=== PATIENT | female | born 1995 | race African-American/Black ===

== ENCOUNTER 2022-09-15 13:12 | Emergency (ER) | payer OTHER, SELFPAY ==
--- NOTE | 2022-09-15 13:34 | PC.NURSE ---
went to waiting room to call pt back for triage, pt and 2 children were waiting and stated she was in the bathroom. waited 5 min and then knocked on door. informed pt that i was the nurse and ready to triage her, she stated okay, will be out soon. notified charge nurse
[2022-09-15 13:40] VITALS: BP 142/88; PULSE 103; RESP 14; TEMP 37.1; O2SAT 97; BMI 38.3
[2022-09-15 14:15] LABS: Add Manual Diff / Slide Review NO; Basophils Absolute Auto 100 /uL (0-100); Basophils Percent Auto 0.5 % (0-2); Eosinophils Absolute Auto 100 /uL (0-450); Eosinophils Percent Auto 0.6 % (2-4); Hematocrit 36.1 % (36-46); Hemoglobin 11.9 g/dL (12.0-16.0); Lymphocytes Absolute Auto 2400 /uL (1100-4500); Lymphocytes Percent Auto 24.3 % (25-40); Mean Corpuscular HGB Conc 32.8 % (30-36); Mean Corpuscular Hemoglobin 24.4 PG (26-34); Mean Corpuscular Volume 74.4 fL (80-100); Monocytes Absolute Auto 400 /uL (0-900); Neutrophils Absolute Auto 6900 /uL (1500-7000); Neutrophils Percent Auto 70.6 % (50-75); Platelet Count 328 X10^3/uL (150-400); Red Blood Cell Count 4.86 X10^6/uL (4.0-5.2); Red Cell Distribution Width 14.8 % (11.6-14.8); White Blood Cell Count 9.8 X10^3/uL (4.5-11.0)
[2022-09-15 14:52] VITALS: BP 139/99; PULSE 100; RESP 18; O2SAT 99
[2022-09-15 14:54] LABS: Alanine Aminotransferase 22 IU/L (<35); Albumin 4.2 g/dL (3.5-5.0); Albumin Globulin Ratio 1.1 (1.0-2.8); Alkaline Phosphatase 71 U/L (38-126); Aspartate Aminotransferase 25 IU/L (14-36); BUN Creatinine Ratio 14.3 (6-22); Bilirubin Total 0.4 mg/dL (0.2-1.3); Blood Urea Nitrogen 9 mg/dL (7-17); Calcium 8.9 mg/dL (8.4-10.2); Carbon Dioxide 28 mmol/L (22-32); Chloride 102 mmol/L (98-107); Estimated Glomerular Filt Rate > 60 mL/min (>60); Globulin 3.8 g/dL (1.7-4.1); Glucose 112 mg/dL (70-100); HEMOLYSIS < 15 (0-50); Potassium 3.6 mmol/L (3.4-5.1); Sodium 138 mmol/L (137-145)
--- NOTE | 2022-09-15 15:04 | PC.NURSE ---
pt belongings taken home by at request of pt. clothes, phone and purse.
[2022-09-15 15:07] LABS: Ur Creatinine Normal (Normal); Ur Specific Gravity Normal (Normal); Urine pH Normal (Normal)
[2022-09-15 15:08] LABS: UR Morphine/Opiate cutoff 300 Negative (Negative); Urine Amphetamines Negative (Negative); Urine Barbiturates Negative (Negative); Urine Benzodiazepines Negative (Negative); Urine Cocaine Negative (Negative); Urine MDMA Negative (Negative); Urine Methadone Negative (Negative); Urine Methamphetamines Negative (Negative); Urine Oxycodone Negative (Negative); Urine Phencyclidine Negative (Negative); Urine Tetrahydrocannabinol Negative (Negative); Urine Tricyclic Antidepressant Negative (Negative)
[2022-09-15 15:18] LABS: Acetaminophen < 10 ug/mL (10-30); Ethanol (ETOH) < 10 mg/dL; Salicylate < 1.0 mg/dL (<20)
[2022-09-15 15:36] LABS: Free T4, Direct Thyroxine 0.94 ng/dL (0.78-2.19)
[2022-09-15 15:43] LABS: Bacteria Urine Occasional (0-1); RBC Urine 0-1/HPF (0-5/HPF); Squamous Epithelial Cell Urine 1-5 /HPF (0-5/HPF); WBC Urine 0-1/HPF (0-5/HPF)
[2022-09-15 15:44] LABS: Culture Indicated Urine Cult Not Indicated
[2022-09-15 15:50] LABS: Thyroid Stimulating Hormone 0.761 uIU/mL (0.47-4.68)
--- NOTE | 2022-09-15 17:12 | ED_ITS ---
HPI - Psych <Meaghan Bell DO - Last Filed: 09/16/22 13:16> General Chief Complaint: Psychiatric Symptoms Stated Complaint: SI Time Seen by Provider: 09/15/22 14:46 Source: patient Mode of arrival: Ambulatory History of Present Illness HPI Narrative: Patient is a 27-year-old female history of depression presenting today with suicidal ideations. She says she is been depressed for some time. She is thoughts of harming herself she cut herself with pen on her wrists. She did not want to come her brought her here. She does not want help or mental health help. She is already scratched her wrist with a wrist band. She has 3-year-old and 4-year-old at home. She reports that her is and is supportive. She apparently was previously on Zoloft. She does not trust herself or feel safe going home. Related Data Allergies Allergy/AdvReac Type Severity Reaction Status Date / Time No Known Drug Allergies Allergy Verified 09/15/22 13:40 Review of Systems <Meaghan Bell DO - Last Filed: 09/16/22 13:16> Review of Systems ROS Unobtainable: All systems reviewed & are unremarkable except as noted in HPI and below Patient History <Meaghan Bell DO - Last Filed: 09/16/22 13:16> Social History Smoking Status: Unknown if ever smoked Smoking Status: Unknown if ever smoked alcohol intake frequency: holidays/special occasions only Substance Use Type: does not use Exam <DO Vanessa Gaspar Last Filed: 09/16/22 13:16> Initial Vital Signs Initial Vital Signs: Vital Signs Temperature 98.7 F 09/15/22 13:40 Pulse Rate 103 H 09/15/22 13:40 Respiratory Rate 14 09/15/22 13:40 Blood Pressure 142/88 H 09/15/22 13:40 Pulse Oximetry 97 09/15/22 13:40 Oxygen Delivery Method Room Air 09/15/22 13:40 GENERAL: Flat affect not forthcoming appears comfortable CARDIOVASCULAR: peripheral pulses in tact, cap refill <2 sec RESPIRATORY: No respiratory distress, speaks in full sentences without difficulty EXTREMITIES: Normal range of motion, no clubbing or edema. Neurovascularly intact NEUROLOGICAL: Cranial nerves II through XII grossly intact. Normal gait and speech. SKIN: Warm, dry, no petechiae, no rashes or lesions. Superficial longitudinal red wang noted on both forearms no actual cut laceration scab or significant injury appreciated Psych Appearance: grossly normal Speech and Movement: speech and movement normal Mood: dysthymic mood Affect: sad Attitude: cooperative Thought Process: normal Thought Content: suicidality Judgment: fair <Cole Wynne, DO - Last Filed: 09/17/22 00:28> Initial Vital Signs Initial Vital Signs: Vital Signs Temperature 98.7 F 09/15/22 13:40 Pulse Rate 103 H 09/15/22 13:40 Respiratory Rate 14 09/15/22 13:40 Blood Pressure 142/88 H 09/15/22 13:40 Pulse Oximetry 97 09/15/22 13:40 Oxygen Delivery Method Room Air 09/15/22 13:40 Course <Meaghan Bell, DO - Last Filed: 09/16/22 13:16> Orders Ordered: ED Orders 09/15/22 13:45 Consult to [facility] [place] [facility] Specialist Stat 09/15/22 14:00 Acetaminophen Stat Complete Blood Count AUTO DIFF Stat Comprehensive Metabolic Panel Stat Ethanol (ETOH) Stat Free T4, Direct Thyroxine Stat Salicylate Stat Thyroid Stimulating Hormone Stat 09/15/22 14:17 Urine Drug Screen, Rapid Stat Urine Microscopic Stat 09/15/22 17:49 COVID19 -Nasal RAPID Stat Vital Signs Vital signs: Vital Signs - 8 hr 09/16/22 06:01 09/16/22 11:27 Temperature 98.0 F Pulse Rate 89 92 H Respiratory Rate 16 Blood Pressure 116/67 137/86 Pulse Oximetry 98 98 Oxygen Delivery Method Room Air Room Air <Cole Wynne, DO - Last Filed: 09/17/22 00:28> Orders Ordered: ED Orders 09/15/22 13:45 Consult to [facility] [place] Experience Specialist Stat 09/15/22 14:00 Acetaminophen Stat Complete Blood Count AUTO DIFF Stat Comprehensive Metabolic Panel Stat Ethanol (ETOH) Stat Free T4, Direct Thyroxine Stat Salicylate Stat Thyroid Stimulating Hormone Stat 09/15/22 14:17 Urine Drug Screen, Rapid Stat Urine Microscopic Stat 09/15/22 17:49 COVID19 -Nasal RAPID Stat Consultations Consultation #1: discussed with DCR. Patient is open to placement, she is voluntary. Given Prime she will need prior auth. Requests we call [phone]. [id number] - call center closed. Vital Signs Vital signs: Vital Signs - 8 hr 09/16/22 06:01 09/16/22 11:27 Temperature 98.0 F Pulse Rate 89 92 H Respiratory Rate 16 Blood Pressure 116/67 137/86 Pulse Oximetry 98 98 Oxygen Delivery Method Room Air Room Air MDM - Psych <Meaghan Bell, DO - Last Filed: 09/16/22 13:16> Lab Data 09/15/22 14:00 09/15/22 14:00 Labs: Lab Results 09/15/22 09/15/22 09/15/22 Range/Units 14:00 14:00 14:00 WBC 9.8 (4.5-11.0) X10^3/uL RBC 4.86 (4.0-5.2) X10^6/uL Hgb 11.9 L (12.0-16.0) g/dL Hct 36.1 (36-46) % MCV 74.4 L (80-100) fL MCH 24.4 L (26-34) PG MCHC 32.8 (30-36) % RDW 14.8 (11.6-14.8) % Plt Count 328 (150-400) X10^3/uL Neut % (Auto) 70.6 (50-75) % Lymph % (Auto) 24.3 L (25-40) % [place] % (Auto) 4.0 (3-14) % Eos % (Auto) 0.6 L (2-4) % Baso % (Auto) 0.5 (0-2) % Neut # (Auto) 6900 (4329-1820) /uL Lymph # (Auto) 2400 (7938-6665) /uL [place] # (Auto) 400 (0-900) /uL Eos # (Auto) 100 (0-450) /uL Baso # (Auto) 100 (0-100) /uL Sodium 138 (137-145) mmol/L Potassium 3.6 (3.4-5.1) mmol/L Chloride 102 (98-107) mmol/L Carbon Dioxide 28 (22-32) mmol/L BUN 9 (7-17) mg/dL Creatinine 0.63 (0.52-1.04) mg/dL Estimated GFR > 60 (>60) mL/min BUN/Creatinine Ratio 14.3 (6-22) Glucose 112 H (70-100) mg/dL Calcium 8.9 (8.4-10.2) mg/dL Total Bilirubin 0.4 (0.2-1.3) mg/dL AST 25 (14-36) IU/L ALT 22 (<35) IU/L Alkaline Phosphatase 71 (38-126) U/L Total Protein 8.0 (6.3-8.2) g/dL Albumin 4.2 (3.5-5.0) g/dL Globulin 3.8 (1.7-4.1) g/dL Albumin/Globulin Ratio 1.1 (1.0-2.8) TSH 0.761 (0.47-4.68) uIU/mL Free T4 0.94 (0.78-2.19) ng/dL Urine RBC (0-5/HPF) Urine WBC (0-5/HPF) Ur Squamous Epith Cells (0-5/HPF) Urine Bacteria (None) Ur Culture Indicated? Salicylates < 1.0 (<20) mg/dL U Opiates 300ng/mL cut (Negative) Ur Oxycodone Screen (Negative) Urine Methadone Screen (Negative) Acetaminophen < 10 (10-30) ug/mL Ur Barbiturates Screen (Negative) U Tricyclic Antidepress (Negative) Ur Phencyclidine Scrn (Negative) Ur Amphetamines Screen (Negative) U Methamphetamines Scrn (Negative) Ur MDMA Scrn (Ecstasy) (Negative) U Benzodiazepines Scrn (Negative) Urine Cocaine Screen (Negative) U Marijuana (THC) Screen (Negative) Ethyl Alcohol < 10 ( - 10) mg/dL SARS-CoV-2 (PCR) (Negative) 09/15/22 09/15/22 09/15/22 Range/Units 14:17 14:17 17:49 WBC (4.5-11.0) X10^3/uL RBC (4.0-5.2) X10^6/uL Hgb (12.0-16.0) g/dL Hct (36-46) % MCV (80-100) fL MCH (26-34) PG MCHC (30-36) % RDW (11.6-14.8) % Plt Count (150-400) X10^3/uL Neut % (Auto) (50-75) % Lymph % (Auto) (25-40) % [place] % (Auto) (3-14) % Eos % (Auto) (2-4) % Baso % (Auto) (0-2) % Neut # (Auto) (5621-9663) /uL Lymph # (Auto) (1334-4680) /uL [place] # (Auto) (0-900) /uL Eos # (Auto) (0-450) /uL Baso # (Auto) (0-100) /uL Sodium (137-145) mmol/L Potassium (3.4-5.1) mmol/L Chloride (98-107) mmol/L Carbon Dioxide (22-32) mmol/L BUN (7-17) mg/dL Creatinine (0.52-1.04) mg/dL Estimated GFR (>60) mL/min BUN/Creatinine Ratio (6-22) Glucose (70-100) mg/dL Calcium (8.4-10.2) mg/dL Total Bilirubin (0.2-1.3) mg/dL AST (14-36) IU/L ALT (<35) IU/L Alkaline Phosphatase (38-126) U/L Total Protein (6.3-8.2) g/dL Albumin (3.5-5.0) g/dL Globulin (1.7-4.1) g/dL Albumin/Globulin Ratio (1.0-2.8) TSH (0.47-4.68) uIU/mL Free T4 (0.78-2.19) ng/dL Urine RBC 0-1/hpf (0-5/HPF) Urine WBC 0-1/hpf (0-5/HPF) Ur Squamous Epith Cells 1-5 /hpf (0-5/HPF) Urine Bacteria Occasional (0-1) (None) Ur Culture Indicated? Cult not indicated Salicylates (<20) mg/dL U Opiates 300ng/mL cut Negative (Negative) Ur Oxycodone Screen Negative (Negative) Urine Methadone Screen Negative (Negative) Acetaminophen (10-30) ug/mL Ur Barbiturates Screen Negative (Negative) U Tricyclic Antidepress Negative (Negative) Ur Phencyclidine Scrn Negative (Negative) Ur Amphetamines Screen Negative (Negative) U Methamphetamines Scrn Negative (Negative) Ur MDMA Scrn (Ecstasy) Negative (Negative) U Benzodiazepines Scrn Negative (Negative) Urine Cocaine Screen Negative (Negative) U Marijuana (THC) Screen Negative (Negative) Ethyl Alcohol ( - 10) mg/dL SARS-CoV-2 (PCR) Negative (Negative) Point of Care Testing Test Results Negative Urine Dip Bedside Urine Glucose Negative Bedside Urine Bilirubin - Negative Bedside Urine Ketone - Negative Urine Specific [place] 1.010 Bedside Urine Occult Blood +++ Bedside Urine pH 6.0 Bedside Urine Protein - Negative Bedside Urine Urobilinogen - Negative Bedside Urine Nitrite - Negative Bedside Urine Leukocytes - Negative Esterase MDM Narrative Medical decision making narrative: Patient 27-year-old female history of severe depression presenting with suicidal ideations scratching herself. . Not trustworthy. Does not want help and is involuntary. Patient was signed out to Dr. Wynne 09/16/22 DCR said patient was voluntary. Social work evaluated in the morning she was accepted [facility] transferred without any difficulty <Cole Wynne, - Last Filed: 09/17/22 00:28> Lab Data Labs: Lab Results 09/15/22 09/15/22 09/15/22 Range/Units 14:00 14:00 14:00 WBC 9.8 (4.5-11.0) X10^3/uL RBC 4.86 (4.0-5.2) X10^6/uL Hgb 11.9 L (12.0-16.0) g/dL Hct 36.1 (36-46) % MCV 74.4 L (80-100) fL MCH 24.4 L (26-34) PG MCHC 32.8 (30-36) % RDW 14.8 (11.6-14.8) % Plt Count 328 (150-400) X10^3/uL Neut % (Auto) 70.6 (50-75) % Lymph % (Auto) 24.3 L (25-40) % [place] % (Auto) 4.0 (3-14) % Eos % (Auto) 0.6 L (2-4) % Baso % (Auto) 0.5 (0-2) % Neut # (Auto) 6900 (8360-2875) /uL Lymph # (Auto) 2400 (6315-7262) /uL [place] # (Auto) 400 (0-900) /uL Eos # (Auto) 100 (0-450) /uL Baso # (Auto) 100 (0-100) /uL Sodium 138 (137-145) mmol/L Potassium 3.6 (3.4-5.1) mmol/L Chloride 102 (98-107) mmol/L Carbon Dioxide 28 (22-32) mmol/L BUN 9 (7-17) mg/dL Creatinine 0.63 (0.52-1.04) mg/dL Estimated GFR > 60 (>60) mL/min BUN/Creatinine Ratio 14.3 (6-22) Glucose 112 H (70-100) mg/dL Calcium 8.9 (8.4-10.2) mg/dL Total Bilirubin 0.4 (0.2-1.3) mg/dL AST 25 (14-36) IU/L ALT 22 (<35) IU/L Alkaline Phosphatase 71 (38-126) U/L Total Protein 8.0 (6.3-8.2) g/dL Albumin 4.2 (3.5-5.0) g/dL Globulin 3.8 (1.7-4.1) g/dL Albumin/Globulin Ratio 1.1 (1.0-2.8) TSH 0.761 (0.47-4.68) uIU/mL Free T4 0.94 (0.78-2.19) ng/dL Urine RBC (0-5/HPF) Urine WBC (0-5/HPF) Ur Squamous Epith Cells (0-5/HPF) Urine Bacteria (None) Ur Culture Indicated? Salicylates < 1.0 (<20) mg/dL U Opiates 300ng/mL cut (Negative) Ur Oxycodone Screen (Negative) Urine Methadone Screen (Negative) Acetaminophen < 10 (10-30) ug/mL Ur Barbiturates Screen (Negative) U Tricyclic Antidepress (Negative) Ur Phencyclidine Scrn (Negative) Ur Amphetamines Screen (Negative) U Methamphetamines Scrn (Negative) Ur MDMA Scrn (Ecstasy) (Negative) U Benzodiazepines Scrn (Negative) Urine Cocaine Screen (Negative) U Marijuana (THC) Screen (Negative) Ethyl Alcohol < 10 ( - 10) mg/dL SARS-CoV-2 (PCR) (Negative) 09/15/22 09/15/2209/15/23 Range/Units 14:17 14:17 17:49 WBC (4.5-11.0) X10^3/uL RBC (4.0-5.2) X10^6/uL Hgb (12.0-16.0) g/dL Hct (36-46) % MCV (80-100) fL MCH (26-34) PG MCHC (30-36) % RDW (11.6-14.8) % Plt Count (150-400) X10^3/uL Neut % (Auto) (50-75) % Lymph % (Auto) (25-40) % [place] % (Auto) (3-14) % Eos % (Auto) (2-4) % Baso % (Auto) (0-2) % Neut # (Auto) (9682-6183) /uL Lymph # (Auto) (3987-2089) /uL [place] # (Auto) (0-900) /uL Eos # (Auto) (0-450) /uL Baso # (Auto) (0-100) /uL Sodium (137-145) mmol/L Potassium (3.4-5.1) mmol/L Chloride (98-107) mmol/L Carbon Dioxide (22-32) mmol/L BUN (7-17) mg/dL Creatinine (0.52-1.04) mg/dL Estimated GFR (>60) mL/min BUN/Creatinine Ratio (6-22) Glucose (70-100) mg/dL Calcium (8.4-10.2) mg/dL Total Bilirubin (0.2-1.3) mg/dL AST (14-36) IU/L ALT (<35) IU/L Alkaline Phosphatase (38-126) U/L Total Protein (6.3-8.2) g/dL Albumin (3.5-5.0) g/dL Globulin (1.7-4.1) g/dL Albumin/Globulin Ratio (1.0-2.8) TSH (0.47-4.68) uIU/mL Free T4 (0.78-2.19) ng/dL Urine RBC 0-1/hpf (0-5/HPF) Urine WBC 0-1/hpf (0-5/HPF) Ur Squamous Epith Cells 1-5 /hpf (0-5/HPF) Urine Bacteria Occasional (0-1) (None) Ur Culture Indicated? Cult not indicated Salicylates (<20) mg/dL U Opiates 300ng/mL cut Negative (Negative) Ur Oxycodone Screen Negative (Negative) Urine Methadone Screen Negative (Negative) Acetaminophen (10-30) ug/mL Ur Barbiturates Screen Negative (Negative) U Tricyclic Antidepress Negative (Negative) Ur Phencyclidine Scrn Negative (Negative) Ur Amphetamines Screen Negative (Negative) U Methamphetamines Scrn Negative (Negative) Ur MDMA Scrn (Ecstasy) Negative (Negative) U Benzodiazepines Scrn Negative (Negative) Urine Cocaine Screen Negative (Negative) U Marijuana (THC) Screen Negative (Negative) Ethyl Alcohol ( - 10) mg/dL SARS-CoV-2 (PCR) Negative (Negative) Point of Care Testing Test Results Negative Urine Dip Bedside Urine Glucose Negative Bedside Urine Bilirubin - Negative Bedside Urine Ketone - Negative Urine Specific [place] 1.010 Bedside Urine Occult Blood +++ Bedside Urine pH 6.0 Bedside Urine Protein - Negative Bedside Urine Urobilinogen - Negative Bedside Urine Nitrite - Negative Bedside Urine Leukocytes - Negative Esterase MDM Narrative Medical decision making narrative: Patient 27-year-old female history of severe depression presenting with suicidal ideations scratching herself. . Not trustworthy. Does not want help and is involuntary. Patient was signed out to Dr. Wynne 09/16/22 DCR said patient was voluntary. Social work evaluated in the morning she was accepted [facility] transferred without any difficulty <Cole Wynne, DO - Last Filed: 09/17/22 00:28> Critical Care Time Critical Care Time: Yes Total Critical Care Time: 30 Attestation: The high probability of a clinically significant, sudden or life threatening deterioration of the [Psych] system(s) required my full and direct attention, in tervention and personal management. The aggregate critical care time was [30] minutes. This time is in addition to time spent performing reported procedures but includes the following: [x] Data Review and interpretation [x] Patient assessment and monitoring of vital signs x[] Documentation [x] Medication orders and management Discharge Plan Departure Patient Disposition: Xfer Psychiatric Hosp Clinical Impression: Depression Referrals: ProviderAndrew [Primary Care Provider] -
--- NOTE | 2022-09-15 17:51 | PC.NURSE ---
I went in to update the patient on the need of collecting a nasal swab to test for covid. Patient is agreeable. I asked how she is doing, and asked if she was cold. Patient replies That's what she said. I asked again if she wanted a warm blanket, patient states she is good without another blanket.
[2022-09-15 18:08] LABS: COVID19 -Nasal RAPID Negative (Negative)
--- NOTE | 2022-09-15 21:06 | PC.NURSE ---
STOCK RANCH SUPERVISOR NOTE pt asked if we could call and have him bring her food, called twice no answer however message was left, offered pt egg sandwich pt declined and laid down and covered herself with blankets. This sitter remains at bedside.
--- NOTE | 2022-09-15 21:26 | PC.NURSE ---
PATIENT CARE ASSOCIATE NOTE pt is using our phone to call herself this sitter remains at bedside
--- NOTE | 2022-09-15 22:30 | PC.NURSE ---
BRAZING MACHINE FEEDER NOTE brought food this sitter remains at bedside
[2022-09-16 06:01] VITALS: BP 116/67; PULSE 89; O2SAT 98
--- NOTE | 2022-09-16 06:35 | PC.NURSE ---
Pt now voluntary DCR states Pt needs Pre Auth for [facility] insurance. [facility] phone center not available overnight. ORTHOPAEDIC NURSE to pursue Placement after auth obtained. DCR sent info to [facility] mental health which stated they have beds available
--- NOTE | 2022-09-16 08:14 | PC.NURSE ---
SLITTING MACHINE OPERATOR HELPER in with pt.
--- NOTE | 2022-09-16 08:25 | CM.SWNOTE ---
Addendum entered by CALVIN Sellers 09/16/22 11:04: Accepted at [facility]-Voluntary unit. Accepting provider is SHEREEN Veliz. RN to RN report number is P [phone]. [facility] contact is Aby Walton [phone] F [phone] BLS p/u is [phone]. Patient provided with [facility] what to expect packet, spouse will need to drop clothes off to [facility] JW Addendum entered by CALVIN Sellers 09/16/22 08:36: ADD: Patient denies current use of anti-depressants or anti-anxiety medication, no outpatient MH providers. Patient cannot remember the last time she had a counselor. Patient denies MH diagnosis. Patient appears to be in a major depressive episode, lacking hope for the future, poor functional status r/t sx of depression JW Original Note: GRAPHOTYPE OPERATOR Note Requested for consult to assess needs and assist in dispo planning for this 27 yo female, comes in at the urging of her for thoughts of suicide and self harm It appears DCR was requested last night and after evaluation patient was found to be voluntary Met w/patient this morning, introduced self. Patient sleeping but awakens quickly and greets this GRAPHOTYPE OPERATOR w/good eye contact, affect very flat, voice quiet, speech WNL however patient tends to take long pauses to answer questions Patient denies hallucinations, endorses current SI. When asked what patient is hoping for - if a magic wand was used- and patient becomes tearful after long pause, states I wish I was enough and I wish I could go through one day without struggling so much Patient currently living with her active duty spouse and two small children . It sounds a though patient has traveled extensively over the last few years r/t spouse's deployments; biological family resides in [place]. Patient denies current local supports other than her spouse and connections with biological family in [place] sound strained Patient admits to daily thoughts of killing self, sleeping a lot and struggles to manage her daily activities and to manage the needs of her children. Patient is not medicated and not seeing a counselor Patient's last psychiatric hospitalization was in [place] before [facility]. Did not assess for prior suicide attempt Reviewed dispo options and encouraged patient to consider inpatient psychiatric stay and patient agreeable Attempting placement now, Dr Bell agrees CALVIN Andrade
--- NOTE | 2022-09-16 08:52 | PC.NURSE ---
Pt is up eating breakfast
[2022-09-16 11:27] VITALS: BP 137/86; PULSE 92; RESP 16; TEMP 36.7; O2SAT 98
== END 2022-09-16 11:40 ==
PROVIDERS: Emergency Provider Emergency Medicine
DX: F32.A Depression, unspecified (principal); R45.851 Suicidal ideations; Z20.822 Contact with and (suspected) exposure to COVID-19
CPT/HCPCS: 36415; 80053; 80305; 80320; 80329; 81003; 81015; 81025; 84439; 84443; 85025; 87635; 99284; C9803; G0480

== ENCOUNTER 2024-03-07 10:13 | Emergency (ER) | payer OTHER, SELFPAY ==
[2024-03-07] VITALS (19 sets, daily range): BP systolic 112–153; BP diastolic 59–80; PULSE 108–144; RESP 12–24; TEMP 37.2–38.3; O2SAT 94–100; BMI 43.4
[2024-03-07] MEDS: SODIUM CHLORIDE 0.9% 1,000 ML 1000 ML IV (10:40)
--- NOTE | 2024-03-07 11:00 | PC.NURSE ---
Lower abd pain radiating to back. Nausea. Fever at home. Pt seen at on Sunday.
--- NOTE | 2024-03-07 11:02 | ED.GENADULT ---
HPI - General Adult General Chief complaint: Fever Stated complaint: Might have a Kidney Infection Time Seen by Provider: 03/07/24 10:39 Source: patient Mode of arrival: Ambulatory History of Present Illness HPI narrative: Patient is a 29-year-old female who here for evaluation what she describes as a possible right-sided kidney infection. She states her symptoms started 3 days ago. Initially was just a fever. She went to the walk-in clinic. No antibiotics were administered and was told to take Tylenol. She returns today for now having right-sided flank pain. No defined urinary symptoms. No abdominal pain. Some nausea but no vomiting. Continues to have fevers. A slight headache. No chest pain or shortness of breath or sore throat. Related Data Home Medications Medication Instructions Recorded Confirmed metformin 500 mg tablet 500 mg PO DAILY 03/07/24 03/07/24 sertraline 100 mg tablet 100 mg PO DAILY 03/07/24 03/07/24 spironolactone 25 mg tablet 50 mg PO DAILY 03/07/24 03/07/24 Previous Rx's Medication Instructions Recorded ondansetron 4 mg disintegrating 4 mg PO Q6H PRN nausea and 03/07/24 tablet vomiting #14 tabs sulfamethoxazole 800 1 tab PO BID 14 days #28 tabs 03/07/24 mg-trimethoprim 160 mg tablet (Bactrim DS) Allergies Allergy/AdvReac Type Severity Reaction Status Date / Time No Known Drug Allergies Allergy Verified 03/07/24 10:28 Review of Systems Review of Systems ROS Unobtainable: All systems reviewed & are unremarkable except as noted in HPI and below Patient History Social History Smoking Status: Never smoker Smoking Status: Never smoker alcohol intake frequency: holidays/special occasions only Substance Use Type: does not use Exam Initial Vital Signs Initial Vital Signs: Vital Signs Temperature 100.9 F H 03/07/24 10:22 Pulse Rate 144 H 03/07/24 10:22 Respiratory Rate 24 03/07/24 10:22 Blood Pressure 132/80 03/07/24 10:22 Pulse Oximetry 100 03/07/24 10:22 Oxygen Delivery Method Room Air 03/07/24 10:22 Const General: cooperative, comfortable and No ill appearing HENAR Head: normal to inspection and normocephalic Resp Effort & Inspection: normal respiratory effort Auscultation: clear to auscultation bilaterally Cardio Rate: tachycardic Rhythm: regular rhythm GI Inspection: normal to inspection Palpation: soft and No firm Back/Spine/Pelvis Back: No CVA tenderness Skin General: no rashes or lesions noted Neuro General: patient alert, patient awake, patient oriented x3 and moves all extremities Extrem General: capillary refill normal Course Orders Ordered: ED Orders 03/07/24 10:23 Urine Culture Stat Urine Microscopic Stat 03/07/24 10:52 Complete Blood Count AUTO DIFF Stat Comprehensive Metabolic Panel Stat Lactate (Lactic Acid) Stat Lipase Stat Procalcitonin Stat 03/07/24 11:39 Blood Culture Stat Ondansetron HCl (Ondansetron 4 Mg/2 Ml Inj) 4 mg IV NOW PRN PRN Reason: Nausea And Vomiting Ondansetron HCl (Ondansetron 4 Mg Odt) 4 mg SL NOW PRN PRN Reason: Nausea And Vomiting Discontinued Medications Sodium Chloride (Normal Saline 0.9%) 1,000 mls @ 1,000 mls/hr IV BOLUS ONE Stop: 03/07/24 11:28 Last Infusion: 03/07/24 11:41 Dose: Infused Documented By: Admin: 03/07/24 10:40 Dose: 1,000 mls/hr Documented By: KATHERINE Acetaminophen (Ofirmev) 1,000 mg in 100 mls @ 400 mls/hr IV NOW ONE Stop: 03/07/24 10:55 Last Infusion: 03/07/24 11:38 Dose: Infused Documented By: Admin: 03/07/24 11:18 Dose: 400 mls/hr Documented By: ROYAL Ceftriaxone Sodium 1,000 mg/ (Sodium Chloride) 100 mls @ 200 mls/hr IV NOW ONE Stop: 03/07/24 10:47 Last Infusion: 03/07/24 12:18 Dose: Infused Documented By: Admin: 03/07/24 11:38 Dose: 200 mls/hr Documented By: ROYAL Vital Signs Vital signs: Vital Signs - 8 hr 03/07/24 10:22 03/07/24 10:40 03/07/24 10:59 Temperature 100.9 F H Pulse Rate 144 H 128 H 117 H Respiratory Rate 24 14 Blood Pressure 132/80 Pulse Oximetry 100 100 100 Oxygen Delivery Method Room Air 03/07/24 11:00 03/07/24 11:00 03/07/24 11:30 Temperature Pulse Rate 116 H Respiratory Rate 14 Blood Pressure 138/76 150/70 H Pulse Oximetry 100 Oxygen Delivery Method 03/07/24 11:30 03/07/24 12:00 03/07/24 12:00 Temperature Pulse Rate 116 H 111 H Respiratory Rate 16 12 Blood Pressure 153/76 H Pulse Oximetry 100 96 Oxygen Delivery Method 03/07/24 12:36 03/07/24 13:00 03/07/24 13:18 Temperature Pulse Rate 110 H 112 H Respiratory Rate 19 22 Blood Pressure 136/74 Pulse Oximetry 99 97 Oxygen Delivery Method 03/07/24 13:18 03/07/24 13:30 03/07/24 14:00 Temperature Pulse Rate 112 H 108 H 109 H Respiratory Rate 18 24 22 Blood Pressure Pulse Oximetry 97 100 98 Oxygen Delivery Method 03/07/24 14:01 03/07/24 14:01 Temperature Pulse Rate 113 H Respiratory Rate 22 Blood Pressure 136/76 Pulse Oximetry 100 Oxygen Delivery Method Medical Decision Making Lab Data Lab results reviewed: Yes I reviewed the patient's lab results. 03/07/24 10:52 03/07/24 10:52 Labs: Lab Results 03/07/24 03/07/24 Range/Units 10:23 10:52 WBC 15.2 H (4.5-11.0) X10^3/uL RBC 4.70 (4.0-5.2) X10^6/uL Hgb 11.4 L (12.0-16.0) g/dL Hct 34.8 L (36-46) % MCV 73.9 L (80-100) fL MCH 24.2 L (26-34) PG MCHC 32.7 (30-36) % RDW 15.6 H (11.6-14.8) % Plt Count 322 (150-400) X10^3/uL Neut % (Auto) Not Reportable Lymph % (Auto) Not Reportable Rains % (Auto) Not Reportable Eos % (Auto) Not Reportable Baso % (Auto) Not Reportable Lymph # (Auto) Not Reportable Rains # (Auto) Not Reportable Baso # (Auto) Not Reportable Total Counted 100 Seg Neutrophils % 78.0 H (38-70) % Band Neutrophils % 7.0 (3-7) % Lymphocytes % (Manual) 6.0 L (25-45) % Atypical Lymphs % 4.0 H ( - 0) % Monocytes % (Manual) 4.0 (2-11) % Eosinophils % (Manual) 1.0 L (2-4) % Neutrophils # (Manual) 44575 H (8290-0518) /uL Toxic Granulation Present H Toxic Vacuolation Present H Platelet Estimate Adequate on smear RBC Morphology Normal morphology Sodium 133 L (137-145) mmol/L Potassium 4.8 (3.4-5.1) mmol/L Chloride 100 (98-107) mmol/L Carbon Dioxide 24 (22-32) mmol/L BUN 10 (7-17) mg/dL Creatinine 0.68 (0.52-1.04) mg/dL Estimated GFR > 60 (>60) mL/min BUN/Creatinine Ratio 14.7 (6-22) Glucose 99 (70-100) mg/dL Lactate 1.6 (0.7-2.1) mmol/L Calcium 8.8 (8.4-10.2) mg/dL Total Bilirubin 1.0 (0.2-1.3) mg/dL AST 53 H (14-36) IU/L ALT 48 H (<35) IU/L Alkaline Phosphatase 90 (38-126) U/L Total Protein 8.5 H (6.3-8.2) g/dL Albumin 4.4 (3.5-5.0) g/dL Globulin 4.1 (1.7-4.1) g/dL Albumin/Globulin Ratio 1.1 (1.0-2.8) Lipase 49 (23-300) U/L Procalcitonin 0.194 (<0.5) ng/mL Urine RBC 1-5/hpf (0-5/HPF) Urine WBC 10-30/hpf H (0-5/HPF) Ur Squamous Epith Cells 1-5 /hpf (0-5/HPF) Ur Transition Epith Cell 0-1/hpf (0-5/HPF) Urine Bacteria Moderate (10-30) H (None) Ur Culture Indicated? Specimen cultured Vol Urine Centrifuged 10ml (spun) Point of Care Testing Test Results Negative Urine Dip Bedside Urine Glucose Negative Bedside Urine Bilirubin - Negative Bedside Urine Ketone + 15 Urine Specific [place] 1.010 Bedside Urine Occult Blood + Bedside Urine pH 9 Bedside Urine Protein ++ 100 Bedside Urine Urobilinogen - Negative Bedside Urine Nitrite - Negative Bedside Urine Leukocytes +/- 15 Esterase Point of care testing: Point of Care Testing Test Results Negative Urine Dip Bedside Urine Glucose Negative Bedside Urine Bilirubin - Negative Bedside Urine Ketone + 15 Urine Specific [place] 1.010 Bedside Urine Occult Blood + Bedside Urine pH 9 Bedside Urine Protein ++ 100 Bedside Urine Urobilinogen - Negative Bedside Urine Nitrite - Negative Bedside Urine Leukocytes +/- 15 Esterase MDM Narrative Medical decision making narrative: Patient arrived tachycardic and febrile. Has a leukocytosis. But with a normal lactate. Heart rate improved with fluids and fever control but still remained tachycardic. Has a urinalysis that is consistent with a urinary tract infection and getting her presentation today I do suspect this is pyelonephritis. After medications she was able to tolerate oral intake. Considered admission to the hospital however given her age and lack of other comorbidities and the fact that she was tolerating oral intake will discharge home with oral antibiotics although patient and who are at bedside were given very strict return precautions. They expressed understanding and agreement with plan. Discharge Plan Departure Patient Disposition: Home Clinical Impression: Pyelonephritis Instructions: DI for Kidney Infection Activity Restrictions/Additional Instructions: Antibiotics and nausea medication for sent to [facility] per your request. Recommend that you start taking them as directed. Also recommend that you increase your fluid intake. You can take Tylenol/ibuprofen for any fevers or body aches. Return to the emergency department for new or worsening symptoms. Prescriptions: New ondansetron 4 mg tablet,disintegrating 4 mg PO Q6H PRN (Reason: nausea and vomiting) Qty: 14 0RF sulfamethoxazole-trimethoprim [Bactrim DS] 800-160 mg tablet 1 tab PO BID 14 Days Qty: 28 0RF No Action metformin 500 mg tablet 500 mg PO DAILY sertraline 100 mg tablet 100 mg PO DAILY spironolactone 25 mg tablet 50 mg PO DAILY Referrals: ProviderAndrew [Primary Care Provider] - Stand Alone Forms: Patient Portal/API
[2024-03-07 11:05] LABS: Hematocrit 34.8 % (36-46); Hemoglobin 11.4 g/dL (12.0-16.0); Mean Corpuscular HGB Conc 32.7 % (30-36); Mean Corpuscular Hemoglobin 24.2 PG (26-34); Mean Corpuscular Volume 73.9 fL (80-100); Platelet Count 322 X10^3/uL (150-400); Red Cell Distribution Width 15.6 % (11.6-14.8); White Blood Cell Count 15.2 X10^3/uL (4.5-11.0)
[2024-03-07 11:06] LABS: Add Manual Diff / Slide Review YES
[2024-03-07] MEDS: ACETAMINOPHEN IV 1,000 MG/100 ML VIAL 400 MG IV (11:18)
[2024-03-07 11:23] LABS: Bacteria Urine Moderate (10-30); Culture Indicated Urine Specimen Cultured; RBC Urine 1-5/HPF (0-5/HPF); Squamous Epithelial Cell Urine 1-5 /HPF (0-5/HPF); Transitional Epi Cells Urine 0-1/HPF (0-5/HPF); Urine Volume 10mL (spun); WBC Urine 10-30/HPF (0-5/HPF)
[2024-03-07 11:23] LABS: Alanine Aminotransferase 48 IU/L (<35); Albumin 4.4 g/dL (3.5-5.0); Albumin Globulin Ratio 1.1 (1.0-2.8); Alkaline Phosphatase 90 U/L (38-126); Aspartate Aminotransferase 53 IU/L (14-36); BUN Creatinine Ratio 14.7 (6-22); Blood Urea Nitrogen 10 mg/dL (7-17); Calcium 8.8 mg/dL (8.4-10.2); Carbon Dioxide 24 mmol/L (22-32); Chloride 100 mmol/L (98-107); Estimated Glomerular Filt Rate > 60 mL/min (>60); Globulin 4.1 g/dL (1.7-4.1); Glucose 99 mg/dL (70-100); Lactate (Lactic Acid) 1.6 mmol/L (0.7-2.1); Lipase 49 U/L (23-300); Potassium 4.8 mmol/L (3.4-5.1); Sodium 133 mmol/L (137-145); Total Protein 8.5 g/dL (6.3-8.2)
[2024-03-07 11:24] LABS: HEMOLYSIS 118 (0-50)
[2024-03-07] MEDS: cefTRIAXone 1,000 MG in SODIUM CHLORIDE 0.9% 100 ML 200 MG IV (11:38)
[2024-03-07 11:39] LABS: Procalcitonin 0.194 ng/mL (<0.5)
--- NOTE | 2024-03-07 11:43 | PC.NURSE ---
temp prior to apap: 103.2
[2024-03-07 12:05] LABS: Platelet Estimate Adequate on smear; RBC Morphology Normal Morphology
[2024-03-07 12:06] LABS: Toxic Granulation Present; Toxic Vacuolation Present
[2024-03-07 12:08] LABS: Neutrophils Absolute Manual 12920 /uL (3000-5900); Total Cells Counted 100
--- NOTE | 2024-03-07 12:37 | PC.NURSE ---
patient temp: 99.7
[2024-03-07] MEDS: IBUPROFEN 400 MG TABLET 800 MG PO (14:54)
--- NOTE | 2024-03-07 14:56 | DI.CT.S_ITS ---
PROCEDURE: CT ABDOMEN PELVIS W CON INDICATIONS: Right-sided abdominal pain TECHNIQUE: After the administration of intravenous contrast, axial sections acquired from the lung bases to the pubic symphysis. Coronal and sagittal reformats were performed. For radiation dose reduction, the following was used: automated exposure control, adjustment of mA and/or kV according to patient size. COMPARISON: None. FINDINGS: Image quality: Diagnostic. Lower Chest: No significant findings. ABDOMEN: Liver: No solid mass. Gallbladder: Absent Biliary ducts: No biliary dilation. Pancreas: No ductal dilation. Spleen: Size is within normal limits. Adrenal Glands: No adrenal nodules. Kidneys and Ureters: Findings consistent with pyelonephritis of the right kidney with areas of ill-defined low-density consistent with lobar nephronia. No hydronephrosis. No obstructing stone. Left kidney and ureter are unremarkable. Stomach and Bowel: Normal colonic caliber, without significant wall thickening. Normal appendix. Peritoneum: No abnormal intraperitoneal fluid. No free air. Ventral Wall: No significant ventral hernia. Abdominal Nodes: No retroperitoneal or mesenteric adenopathy by size criteria. Vessels: Aorta and inferior vena cava are normal in size. PELVIS: Pelvic Organs: Retroverted uterus.. Bladder: No bladder wall thickening, accounting for underdistention. Pelvic Nodes: No enlarged lymph nodes. Miscellaneous: No inguinal hernias are seen. Bones: No aggressive osseous abnormality. IMPRESSION: Pyelonephritis involving the right kidney. Dictated by: Ariel Rob M.D. on 03/07/2024 at 15:56 Approved by: Ariel Rob M.D. on 03/07/2024 at 16:02
== END 2024-03-07 16:47 | disposition home or self-care (01) ==
PROVIDERS: Emergency Provider Emergency Medicine
DX: N12 Tubulo-interstitial nephritis, not specified as acute or chronic (principal); R50.9 Fever, unspecified; R51.9 Headache, unspecified
CPT/HCPCS: 36415; 74177; 80053; 81003; 81015; 81025; 83605; 83690; 84145; 85007; 85025; 87040; 87077; 87086; 87186; 96361; 96365; 96367; 99284; J0136; J0696; Q9967